=== PATIENT | female | born 2000 | race Hispanic/Latino ===

== ENCOUNTER → 2022-12-10 | Outpatient (CLI) | payer MEDICAID ==
[~2022-12-10] MED LIST: IBUP-2070 PO
== END | disposition home or self-care (01) ==
LOC: RAH 15:38
PROVIDERS: ATTEND Obstetrics & Gynecology
DX: Z30.46 Encounter for surveillance of implantable subdermal contraceptive (principal)
CPT/HCPCS: 73060